=== PATIENT | female | born 1990 | race African-American/Black ===

== ENCOUNTER 2021-06-19 14:18 | Emergency (ER) | payer OTHER, MEDICAID ==
[2021-06-19] MEDS ORDERED: Ketorolac Tromethamine 60 MG/2 ML VIAL ONE (15:00)
== END 2021-06-19 15:09 | disposition home or self-care (01) ==
LOC: BURERS 14:18
DX: S39.012A Strain of muscle, fascia and tendon of lower back, initial encounter (principal); S29.012A Strain of muscle and tendon of back wall of thorax, initial encounter; W00.0XXA Fall on same level due to ice and snow, initial encounter
CPT/HCPCS: 96372; 99283; J1885